=== PATIENT | male | born 1950 | race Caucasian/White ===

== ENCOUNTER 2017-10-27 09:11 | Inpatient (IN) | payer OTHER ==
[2017-09-29 12:43] VITALS: BMI 34.0
[2017-09-29 12:54] LABS: BASO % 0.6 %; BASO ABS # 0.04 K/uL (0-0.2); EOS % 2.4 %; EOS ABS # 0.16 K/uL (0-0.5); HEMATOCRIT 44.2 % (42-52); HEMOGLOBIN 14.9 g/dL (14.0-18.0); IG# 0.01 K/uL (0.00-0.02); LYMPH % 35.7 %; LYMPH ABS # 2.36 K/uL (1.2-3.4); MEAN CELL VOLUME 95.3 fL (80-100); MEAN CORPUSCULAR HEMOGLOBIN 32.1 pg (25-34); MEAN CORPUSCULAR HGB CONC 33.7 g/dl (32-36); MEAN PLATELET VOLUME 11.3 fL (7.4-10.4); MONO % 8.5 %; MONO ABS # 0.56 K/uL (0.11-0.59); NEUT % 52.6 %; NEUT ABS # 3.48 K/uL (1.4-6.5); PLATELET COUNT 152 K/uL (130-400); RED CELL DISTRIBUTION WIDTH CV 13.2 % (11.5-14.5); WHITE BLOOD COUNT 6.61 K/uL (4.8-10.8)
--- NOTE | 2017-09-29 13:13 | PAT Medication Instructions ---
Service Date Sep 29, 2017. Current Home Medication List Acetaminophen (Tylenol Arthritis Ext Rel), 1,300 MG PO BID PRN for PRN Aspirin (Aspirin Ec), 81 MG PO QAM Atorvastatin (Lipitor), 20 MG PO QPM Clopidogrel (Plavix), 75 MG PO QAM Losartan Potassium (Cozaar), 50 MG PO QAM Metoprolol Tartrate (Lopressor) (Lopressor), 25 MG PO BID Zolpidem Tartrate (Ambien), 10 MG PO HS Medication Instructions For Your Scheduled Surgery - Hold the following medications 7 days prior to surgery per Cardiology: Clopidogrel (Plavix), 75 MG PO QAM - Hold the following medications the morning of surgery: Losartan Potassium (Cozaar), 50 MG PO QAM - Take the following medications the morning of surgery with a sip of water OTHERWISE NOTHING TO EAT OR DRINK AFTER MIDNIGHT: Aspirin (Aspirin Ec), 81 MG PO QAM Metoprolol Tartrate (Lopressor) (Lopressor), 25 MG PO BID Acetaminophen (Tylenol Arthritis Ext Rel), 1,300 MG PO BID PRN for PRN (may take if needed up to 4 hours prior to surgery) - Take the following medications as scheduled the night before surgery: Zolpidem Tartrate (Ambien), 10 MG PO HS Atorvastatin (Lipitor), 20 MG PO QPM Metoprolol Tartrate (Lopressor) (Lopressor), 25 MG PO BID If you have any questions please call us at [phone] or [phone] or [phone]
--- NOTE | 2017-09-29 13:51 | DIAGNOSTIC IMAGING REPORT ---
CHEST 2 VIEWS ROUTINE CLINICAL HISTORY: Preoperative chest COMPARISON STUDY: No previous studies for comparison. FINDINGS: The cardiac and mediastinal contours are normal. There is no evidence of focal pulmonary consolidation. There is no evidence of failure. No pleural effusions are visualized.[ IMPRESSION: No active disease in the chest. Electronically signed by: Eligio Blackman M.D. 09/29/2017 1:49 PM Dictated Date/Time: 09/29/2017 1:49 PM
[2017-09-29 15:03] LABS: CALCIUM 8.7 mg/dl (8.5-10.1); CREATININE 1.08 mg/dl (0.60-1.40); POTASSIUM 4.3 mmol/L (3.5-5.1)
[~2017-10-27] VITALS: Ht 190.5 cm; Wt 123.3 kg
[2017-10-27] VITALS (9 sets, daily range): BP systolic 111–183; BP diastolic 76–99; PULSE 73–90; TEMP 36.4–36.8; O2SAT 93–99; Ht 190.5 cm; Wt 123.3 kg
[~2017-10-27 09:11] MED LIST: ACET1TAB84 PO; ASPI81TA28 PO; ATOR-22 PO; CEFAZOLIN 3000MG IV PUSH 15 ML IV SCH; CLOP1TAB15 PO; LACTATED RINGER'S 1000ML 1,000 ML IV SCH; LOSA50TA6 PO; METO25TA56 PO; ZOLP10TA PO
[2017-10-27] MEDS ORDERED: LABETALOL HCL IV 5 MG/ML 20ML IV PRN (09:30)
[2017-10-27] MEDS ORDERED: ONDANSETRON INJ 2 MG/ML 2 ML VIAL IV PRN ×2 (09:30→13:45)
[2017-10-27] MEDS ORDERED: HYDROmorphone INJ 1 MG/ML SYR IV PRN (09:30)
[2017-10-27] MEDS ORDERED: EpHEDrine SULFATE INJ 50 MG/ML AMP IV PRN (09:30)
[2017-10-27] MEDS ORDERED: NALOXONE HCL 0.4 MG/1 ML VIAL/CARP IV PRN ×4 (09:30→13:45)
[2017-10-27] MEDS ORDERED: MEPERIDINE HCL 25 MG/ML CARP IV PRN (09:30)
[2017-10-27] MEDS ORDERED: ATROPINE SULFATE 0.1 MG/ML 5ML SYR IV PRN (09:30)
[2017-10-27] MEDS ORDERED: PHENYLEPHRINE 100MCG/ML 5ML SYR IV PRN (09:30)
[2017-10-27] MEDS ORDERED: MoRPHine SULFATE 10 MG/ML CARP/VIAL IV PRN (09:30)
[2017-10-27] MEDS ORDERED: FLUMAZENIL 0.1 MG/1 ML 10 ML VIAL IV PRN (09:30)
[2017-10-27] MEDS ORDERED: FENTANYL CITRATE INJ 50 MCG/1 ML 2 ML VIAL ONE ×4 (10:14→12:55)
[2017-10-27] MEDS ORDERED: MIDAZOLAM HCL 1 MG/ML 2ML VIAL ONE (10:14)
--- NOTE | 2017-10-27 10:26 | History & Physical Bridge Note ---
H&P Re-Evaluation Bridge Note: I have examined the patient, reviewed the History & Physical and in the interval since the performance of the History & Physical I have noted the following changes of clinical significance: No changes noted
--- NOTE | 2017-10-27 10:28 | History and Physical ---
History & Physical Date Oct 27, 2017. Chief Complaint Back and leg pain History of Present Illness The patient is a 67 year old male with complaints of back and leg pain Additional History Hepatic Disease: No Endocrine Disorder: No Kidney Disease: No Hypertension: Yes Heart Disease: No Bleeding Tendencies: No Infectious Diseases: No Allergies Coded Allergies: Penicillins (Verified Allergy, Unknown, RASH A CHILD, 09/29/17) Home Medications Scheduled Aspirin (Aspirin Ec), 81 MG PO QAM Atorvastatin (Lipitor), 20 MG PO QPM Clopidogrel (Plavix), 75 MG PO QAM Losartan Potassium (Cozaar), 50 MG PO QAM Metoprolol Tartrate (Lopressor) (Lopressor), 25 MG PO BID Zolpidem Tartrate (Ambien), 10 MG PO HS Scheduled PRN Acetaminophen (Tylenol Arthritis Ext Rel), 1,300 MG PO BID PRN for PRN Physical Examination Skin: warm/dry, no rash Eyes: normal inspection, EOMI, sclerae normal ENT: normal ENT inspection, pharynx normal Head: normocephalic, atraumatic Neck: supple, no adenopathy, trachea midline Respiratory/Chest: lungs clear, normal breath sounds, no respiratory distress Cardiovascular: regular rate, rhythm, no edema, no murmur Abdomen / GI: normal bowel sounds, non tender Back: normal inspection Extremities: normal inspection, normal range of motion Neurologic/Psych: no motor/sensory deficits, alert, normal reflexes, oriented x 3 Diagnosis Lumbar spinal stenosis Plan of Treatment L4 to S1 decompression and fusion
[2017-10-27] MEDS ORDERED: BACITRACIN 50000 UNIT VIAL ONE (11:00)
[2017-10-27] MEDS ORDERED: BUPIVACAINE 0.5 % 5 MG/1 ML MPF 30ML VIAL ONE (11:01)
[2017-10-27] MEDS ORDERED: HYDROmorphone INJ 2 MG/ML SYR/VIAL ONE ×2 (11:01→12:10)
[2017-10-27] MEDS ORDERED: EpINEphrine INJ 1MG/ML AMP 1 MG/ML AMP ONE (11:01)
[2017-10-27] MEDS ORDERED: NURSING VERBAL MED ORDER ONE ×2 (11:15)
--- NOTE | 2017-10-27 12:06 | Anesthesiology Progress Note ---
Anesthesia Post Op Note Date & Time Oct 27, 2017 at 12:06 Vital Signs Pain Intensity: 3 Vital Signs Past 12 Hours Date Time Temp Pulse Resp B/P (MAP) Pulse Ox O2 Delivery O2 Flow Rate FiO2 10/27/17 09:44 36.7 73 18 183/99 96 Room Air Notes Mental Status: alert / awake / arousable, participated in evaluation Pt Amnestic to Procedure: Yes Nausea / Vomiting: adequately controlled Pain: adequately controlled, improving with treatment Airway Patency, RR, SpO2: stable & adequate BP & HR: stable & adequate Hydration State: stable & adequate Anesthetic Complications: no major complications apparent
[2017-10-27] MEDS ORDERED: ALBUMIN HUMAN 5% 12.5 GM/250 ML VIAL IV ONE (12:10)
[2017-10-27] MEDS ORDERED: FLOSEAL HEMOSTATIC MATRIX 10ML TOP ONE (13:31)
[2017-10-27] MEDS ORDERED: PROPOFOL IV EMULSION 10 MG/ML 20 ML VIAL IV ONE (13:34)
[2017-10-27] MEDS ORDERED: LIDOCAINE HCL 2% 2 ML VIAL (20MG/ML) ONE (13:34)
[2017-10-27] MEDS ORDERED: EpHEDrine SULFATE 50MG/5ML SYR ONE ×2 (13:34→13:42)
[2017-10-27] MEDS ORDERED: DEXAMETHASONE SOD INJ 4 MG/ML VIAL ONE (13:34)
[2017-10-27] MEDS ORDERED: ONDANSETRON INJ 2 MG/ML 2 ML VIAL ONE ×2 (13:34→13:42)
[2017-10-27] MEDS ORDERED: ROCURONIUM BROMIDE 10 MG/ML 5 ML VIAL IV ONE (13:34)
[2017-10-27] MEDS ORDERED: SODIUM CHLORIDE 0.9% 1000ML 1,000 ML IV SCH ×2 (13:37)
[2017-10-27] MEDS ORDERED: NEOSTIGMINE METHYLSULFATE 1 MG/ML 10ML VIAL ONE (13:42)
[2017-10-27] MEDS ORDERED: GLYCOPYRROLATE INJ 0.2 MG/ML VIAL ONE (13:42)
[2017-10-27] MEDS ORDERED: KETOROLAC TROMETHAMINE 30 MG/ML VIAL ONE (13:42)
[2017-10-27] MEDS ORDERED: LORAZEPAM 0.5 MG TAB PO PRN (13:45)
[2017-10-27] MEDS ORDERED: SOD PHOSPHATE/SOD BIPHOSPHATE ENEMA 132 ML BTL PR PRN (13:45)
[2017-10-27] MEDS ORDERED: ACETAMINOPHEN IV 100 ML IV PRN (13:45)
[2017-10-27] MEDS ORDERED: MAGNESIUM HYDROXIDE SUSP 30 ML UDC PO PRN (13:45)
[2017-10-27] MEDS ORDERED: FAMOTIDINE 20 MG TAB PO PRN (13:45)
[2017-10-27] MEDS ORDERED: DO NOT ADMINISTER PNEUMOCOCCAL VACCINE PRN (13:45)
[2017-10-27] MEDS ORDERED: PROMETHAZINE HCL INJ 12.5 MG in SODIUM CHLORIDE 0.9% 50ML 50 ML IV PRN (13:45)
[2017-10-27] MEDS ORDERED: ALUMINUM/MAGNESIUM SUSP 30 ML UDC PO PRN (13:45)
[2017-10-27] MEDS ORDERED: BISACODYL 10 MG SUPP PR PRN (13:45)
[2017-10-27] MEDS ORDERED: METOCLOPRAMIDE HCL INJ 5 MG/ML 2 ML VIAL IV PRN (13:45)
[2017-10-27] MEDS ORDERED: hydrOXYzine HCL 25 MG TAB PO PRN (13:45)
[2017-10-27] MEDS ORDERED: ACETAMINOPHEN 500 MG TAB PO PRN (13:45)
[2017-10-27] MEDS ORDERED: DO NOT ADMINISTER FLU VACCINE PRN (13:45)
[2017-10-27] MEDS ORDERED: LORAZEPAM INJ 0.5 MG in SYRINGE 0.75 ML IV PRN (13:45)
--- NOTE | 2017-10-27 13:45 | DIAGNOSTIC IMAGING REPORT ---
INTRAOPERATIVE RADIOGRAPHS CLINICAL HISTORY: L4-S1 spinal fusion. Fluoroscopy time: 21 seconds. FINDINGS: 2 spot fluoroscopic views of the lumbar spine are presented. There has been discectomy at L4-L5 and L5-S1 with laminectomy and posterior fusion from L4 -S1. Interpedicular screws are present at all levels. The orthopedic hardware appears intact. IMPRESSION: Intraoperative images from L4 -S1 spinal fusion as above. Electronically signed by: Delmer Shen M.D. 10/27/2017 1:44 PM Dictated Date/Time: 10/27/2017 1:43 PM
--- NOTE | 2017-10-27 13:47 | [facility] Operative Report ---
Operative Report Operative Date Oct 27, 2017. Pre-Operative Diagnosis Lumbar Spinal Stenosis Post-Operative Diagnosis Lumbar Spinal Stenosis Procedure(s) Performed #1 decompression medial facetectomy foraminotomies L3 4 L4 5 L5-S1. #2 posterior spinal fusion L4 5 L5-S1. #3 placement of posterior segmental instrumentation L4 5 L5-S1. #4 interbody fusion L4 5 L5-S1. #5 placement peek cage 15 x 26 mm L4 5 and 13 x 26 mm at L5-S1. #6 placement of locally harvested morcellized autograft in the posterior lateral gutters. #7 placement infuse collagen sponge commode Master graft in the posterior lateral gutters and ostial amp in the interbody space. Surgeon Waterfront Director Surgeon(s) Sona Magaña PA-C Estimated Blood Loss 625ml Findings Severe spinal stenosis with spondylolisthesis Specimens None per surgeon Description of Procedure Patient was met with preoperatively case discussed all questions addressed. After informed consent obtained patient was taken to the operative suite underwent intubation placed in a prone position the Juan David table on top of the Hayes frame. All bony prominences well-padded eyes inspected to ensure no external pressure placed upon them. This point the lumbar spine was prepped and draped in normal sterile fashion. Sharp dissection with the assistance of Bovie cautery was performed onto an exposing the lamina and transverse processes of L4-L5 and sacral alar bilaterally. From a caudal to cephalad fashion a complete laminectomy of L5 L4 and partial laminectomy of L3 was performed addressing severe lateral recess and foraminal disease. Pedicle screws are then placed in L4-L5 and S1 levels bilaterally with assistance of fluoroscopy and the probably size asya placed. Through a transforaminal approach on the right a complete discectomy of L5 S1 was performed and plate created to subcortical bleeding bone and a 13 x 26 mm peek cage filled with ostial amp tapped in position. Then proceeded L4 5 and again through a transforaminal approach on the right complete discectomy performed and plate created to subcortical bleeding bone and a 15 x 26 mm peek cage filled with ostial amp tapped in position. The rods were then locked and final position bilaterally. The transverse processes of L4-L5 and sacral alar burred to subcortical bleeding bone. Infuse collagen sponge mask graft locally harvested morcellized autograft was placed in the posterior lateral gutters. 15 round JEFF drain inserted. Incision was then closed with 1 Vicryl in the fascia 2-0 Vicryl subcutaneous tediously 4 Monocryl for final skin closure Steri-Strips sterile dressings placed. Patient we can taken to PACU stable condition. Please note Sona Sutton was present at the entire procedure involved in patient positioning complex portions of the surgery and final skin closure. I attest to the content of the Intraoperative Record and any orders documented therein. Any exceptions are noted below.
[2017-10-27] MEDS ORDERED: HYDROmorphone HCL 0.5MG/ML 50 ML CASSETTE ONE (14:16)
--- NOTE | 2017-10-27 14:38 | Anesthesiology Progress Note ---
Anesthesia Post Op Note Date & Time Oct 27, 2017 at 14:38 Vital Signs Pain Intensity: 3 Vital Signs Past 12 Hours Date Time Temp Pulse Resp B/P (MAP) Pulse Ox O2 Delivery O2 Flow Rate FiO2 10/27/17 14:30 84 13 155/94 100 Nasal Cannula 4 Oxymask 10/27/17 14:20 85 13 164/99 99 Oxymask 10 10/27/17 14:10 67 11 154/75 95 Oxymask 10 10/27/17 14:01 36.1 71 14 162/98 96 Oxymask 10 10/27/17 09:44 36.7 73 18 183/99 96 Room Air Notes Mental Status: alert / awake / arousable, participated in evaluation Pt Amnestic to Procedure: Yes Nausea / Vomiting: adequately controlled Pain: adequately controlled Airway Patency, RR, SpO2: stable & adequate BP & HR: stable & adequate Hydration State: stable & adequate Anesthetic Complications: no major complications apparent
[2017-10-27] MEDS: HYDROmorphone HCL 0.5MG/ML 50 ML CASSETTE IV PRN ×2 (15:32→23:06)
[2017-10-27] MEDS: SODIUM CHLORIDE 0.9% 1000ML 1,000 ML IV SCH ×2 (16:49→22:40)
[2017-10-27] MEDS ORDERED: CEFAZOLIN IV 3,000 MG in DEXTROSE 5% 50ML 50 ML IV SCH (20:00)
[2017-10-27] MEDS: ZOLPIDEM TARTRATE 10 MG TAB PO SCH (21:00)
[2017-10-27] MEDS: CEFAZOLIN IV 3,000 MG in SYRINGE 0 ML IV SCH (21:03)
[2017-10-27] MEDS: DOCUSATE SODIUM/SENNA 50/8.6MG TAB PO SCH (21:04)
[2017-10-27] MEDS: ATORVASTATIN 20 MG TAB PO SCH (21:04)
[2017-10-27] MEDS: METOPROLOL TARTRATE 25 MG TAB PO SCH (21:07)
[2017-10-27] MEDS ORDERED: NURSING DECISION MEDICATION ORDER SCH (21:45)
[2017-10-27] MEDS ORDERED: COUGH DROP (SUGAR FREE) LOZ 24 LOZ/1 BOX PO PRN (21:45)
[2017-10-28] VITALS (7 sets, daily range): BP systolic 113–130; BP diastolic 70–78; PULSE 59–79; TEMP 36.5–37.1; O2SAT 93–95
[2017-10-28] MEDS: CEFAZOLIN IV 3,000 MG in SYRINGE 0 ML IV SCH (03:59)
[2017-10-28] MEDS ORDERED: NURSING DECISION MEDICATION ORDER SCH (05:30)
[2017-10-28 05:43] LABS: BASO % 0.1 %; BASO ABS # 0.01 K/uL (0-0.2); HEMATOCRIT 34.7 % (42-52); HEMOGLOBIN 11.7 g/dL (14.0-18.0); IG# 0.04 K/uL (0.00-0.02); LYMPH % 7.9 %; LYMPH ABS # 0.94 K/uL (1.2-3.4); MEAN CELL VOLUME 95.3 fL (80-100); MEAN CORPUSCULAR HEMOGLOBIN 32.1 pg (25-34); MEAN CORPUSCULAR HGB CONC 33.7 g/dl (32-36); MEAN PLATELET VOLUME 10.5 fL (7.4-10.4); MONO % 7.3 %; MONO ABS # 0.87 K/uL (0.11-0.59); NEUT % 84.4 %; NEUT ABS # 10.11 K/uL (1.4-6.5); PLATELET COUNT 121 K/uL (130-400); RED CELL DISTRIBUTION WIDTH SD 45.5 fL (36.4-46.3); WHITE BLOOD COUNT 11.97 K/uL (4.8-10.8)
[2017-10-28] MEDS ORDERED: HYDROmorphone INJ 0.5 MG/0.5 ML SYR IV PRN (06:00)
[2017-10-28] MEDS ORDERED: DC PCA SCH (06:00)
[2017-10-28 06:17] LABS: CALCIUM 7.7 mg/dl (8.5-10.1); CREATININE 1.09 mg/dl (0.60-1.40); POTASSIUM 4.2 mmol/L (3.5-5.1)
--- NOTE | 2017-10-28 08:24 | Clinical Documentation Query ---
CLINICAL DOCUMENTATION QUERY H&P only lists hypertension as a past medical history, but patient med reconciliation tells a different story. In your clinical opinion is this patient being managed for: ( ) Hyperlipidemia ( ) CAD ( ) Not Agree ( ) Other explanation of clinical findings (Please Explain) ( ) Unable to determine (Please Define) ( ) Need to Discuss The medical record reflects the following clinical findings, treatment, and risk factors. Clinical Indicators: Takes asa, Plavix, Cozaar, Lopressor, & Lipitor at home. Treatment: Remains on above in hospital Risk Factors: Age, Please clarify and document your clinical opinion in the progress notes and discharge summary. Terms such as "probable", "suspected", "likely", "questionable", "possible", or "still to be ruled out" are acceptable. IF IN AGREEMENT, YOU MUST DOCUMENT ABOVE DIAGNOSTIC STATEMENT IN DAILY PROGRESS NOTES AND DISCHARGE SUMMARY. This document is not part of the patient's record. Thank You, Ilir Pantoja, RN [phone]
--- NOTE | 2017-10-28 08:31 | Progress Note ---
Progress Note Date of Service Oct 28, 2017. Progress Note Back pain controlled leg pain markedly improved. Vital signs stable. On exam he is interior bedside as good strength testing. Assessment status post lumbar decompression fusion replant this time we'll initiate physical therapy advance his bowel regiment anticipate home the next few days.
[2017-10-28] MEDS: LOSARTAN POTASSIUM 50 MG TAB PO SCH (08:49)
[2017-10-28] MEDS: METOPROLOL TARTRATE 25 MG TAB PO SCH ×2 (08:49→21:08)
[2017-10-28] MEDS: ASPIRIN 81 MG ECTAB PO SCH (08:49)
--- NOTE | 2017-10-28 08:49 | Anesthesiology Progress Note ---
Anesthesia Post Op Note Date & Time Oct 28, 2017 at 08:48 Vital Signs Pain Intensity: 2.0 Vital Signs Past 12 Hours Date Time Temp Pulse Resp B/P (MAP) Pulse Ox O2 Delivery O2 Flow Rate FiO2 10/28/17 07:50 Room Air 10/28/17 07:00 36.5 61 16 113/71 (85) 94 Room Air 10/28/17 04:00 36.8 79 18 130/78 (95) 94 Room Air 10/27/17 23:55 36.5 80 18 141/76 (97) 93 Room Air 10/27/17 23:45 Room Air 10/27/17 21:06 79 159/90 (113) Notes Mental Status: alert / awake / arousable, participated in evaluation Pt Amnestic to Procedure: Yes Nausea / Vomiting: adequately controlled Pain: adequately controlled Airway Patency, RR, SpO2: stable & adequate BP & HR: stable & adequate Hydration State: stable & adequate Anesthetic Complications: no major complications apparent pt reports some nausea post op with no vomiting. resolved with meds.
[2017-10-28] MEDS: OXYCODONE HCL IR 5 MG TAB (IMMEDIATE RELEASE) PO PRN ×3 (08:52→20:11)
[2017-10-28] MEDS: KETOROLAC TROMETHAMINE 15 MG/ML VIAL IV. PRN (15:28)
[2017-10-28] MEDS: ZOLPIDEM TARTRATE 10 MG TAB PO SCH (21:07)
[2017-10-28] MEDS: ATORVASTATIN 20 MG TAB PO SCH (21:08)
[2017-10-28] MEDS: DOCUSATE SODIUM/SENNA 50/8.6MG TAB PO SCH (21:09)
[2017-10-29] VITALS (7 sets, daily range): BP systolic 114–138; BP diastolic 70–84; PULSE 61–70; TEMP 36.4–37.6; O2SAT 94–97
[2017-10-29] MEDS: POLYETHYLENE (MIRALAX) 17 GM PACK PO SCH ×4 (06:27→23:27)
[2017-10-29] MEDS: OXYCODONE HCL IR 5 MG TAB (IMMEDIATE RELEASE) PO PRN ×3 (06:31→20:56)
[2017-10-29] MEDS: ASPIRIN 81 MG ECTAB PO SCH (07:21)
[2017-10-29] MEDS: LOSARTAN POTASSIUM 50 MG TAB PO SCH (07:22)
[2017-10-29] MEDS ORDERED: RXC5 PO (07:36)
--- NOTE | 2017-10-29 07:37 | Discharge Instructions ---
Discharge Instructions Date of Service Oct 29, 2017. Admission Reason for Admission: Lumbar Spinal Stenosis Discharge Discharge Diagnosis / Problem: lumbar stenosis Discharge Goals Goal(s): Improve function Activity Recommendations Activity Limitations: per Instructions/Follow-up section . Instructions / Follow-Up Instructions / Follow-Up ACTIVITY RECOMMENDATIONS: SELF CARE INSTRUCTIONS AFTER THORACIC/LUMBAR FUSIONS 1. You may walk to your tolerance. It is good exercise for your legs and back. Expect some back and intermittent leg aches and pains. 2. You may perform "counter-top" level activities (make a sandwich, della with a project, etc.). 3. No bending or lifting of more than 10 pounds or back twisting of any nature (roll like a log when turning in bed). 4. You may ride in a car for 20-30 minutes at a time. No driving until after your first visit with your doctor. 5. Frequent changes of position and restricting sitting to 30 minutes at a time will help limit the amount of back spasms and stiffness you may experience. 6. You may discontinue the use of ambulatory aids (cane, crutches, etc.) once your strength and confidence allow. 7. You may [place] machine operator the shower and let water strike your incision when you arrive home at least once daily. Do not take a tub bath, sit in a hot tub or go into a swimming pool until after your first recheck in the office. SPECIAL CARE INSTRUCTIONS: VERY IMPORTANT TO READ AND REVIEW A. Your surgical incision has been closed with a cosmetic suture under the skin that will dissolve in about 6 weeks. In 14 days, you can use a pair of clean scissors and cut the suture that is left outside of the skin at the ends of your incision. 1. The small skin tapes can be removed 7 days after surgery if they have not fallen off by that point. 2. You may keep the wound open to air as much as possible to promote healing after post-op day number 5 unless told otherwise by your doctor. 3. If you think the wound looks like it is becoming infected (redness or worsening drainage) and/or you are experiencing fever, chill or worsening back pain and muscle spasms, contact the office so that we may evaluate you as soon as possible. B. Complications are uncommon, but please contact us if you have any signs or symptoms of: 1. wound infection (fever higher than 102.5 degrees F, redness, separation of wound, drainage, or increasing pain from the incision) 2. blood clots in legs (pain, swelling, redness and warmth in legs) 3. urinary tract infection (fever higher than 102.5 degrees F, burning upon urination or increased frequency of urination) 4. nerve problems (inability to walk on your toes or heels, numbness, loss of bowel or bladder control) 5. any other symptoms that concern you C. Please call the office at if you have any concerns or questions about your operation or recovery. D. No smoking! Smoking drastically decreases the chance of a solid fusion. E. Do not take any anti-inflammatory medications (Indocin, Advil, Motrin, Aspirin, Naprosyn, etc.) as these may inhibit the chance of a solid fusion. Tylenol is okay to take for pain. MANAGING PAIN AFTER SPINAL SURGERY 1. Narcotic medication is intended for short-term use and will be provided for surgical pain. Surgical pain usually lasts for a period of 4-6 weeks. Narcotic medication includes Percocet, Vicodin, Darvocet, Tylenol #3 or Lortab. 2. Longer-term pain is more appropriately treated with non-narcotic medication such as Tylenol ES. 3. Muscle spasm is not appropriately treated with narcotics. Muscle relaxers such as Soma, Flexeril or Skelaxin can be used along with Tylenol ES. 4. Remember that we all live with some "aches and pains". This is not unusual or uncommon after an injury or as we get older. a. Back pain is expected and may include muscle spasms for 4 to 6 weeks after surgery. The pain should gradually improve. If the pain worsens for no apparent reason, please contact the office. b. Intermittent leg pain may also be experienced and should not be concerned about unless it worsens for no apparent reason. If so, please contact the office. 5. We will provide appropriate medication within the normal guidelines of their prescribed use. We will also be very cautious and aware of potential abuse and extended duration of patients' medication needs. a. Pain medications are for your comfort and to assist with sleep and rest so that the tissue can heal. They are not provided in order to return to normal activity and should not be used through the day. To do so or worsening pain at night can result from ongoing tissue damage and development of tolerance to the prescribed medicine. 6. Please allow 2-3 days to process refills. Prescriptions will not be mailed but must be picked up at the office. FOLLOW UP VISIT: Keep your scheduled follow-up appointment. Any questions, please call the office at . Current Hospital Diet Patient's current hospital diet: Regular Diet Discharge Diet Recommended Diet: Regular Diet Procedures Procedures Performed: #1 decompression medial facetectomy foraminotomies L3 4 L4 5 L5-S1. #2 posterior spinal fusion L4 5 L5-S1. #3 placement of posterior segmental instrumentation L4 5 L5-S1. #4 interbody fusion L4 5 L5-S1. #5 placement peek cage 15 x 26 mm L4 5 and 13 x 26 mm at L5-S1. #6 placement of locally harvested morcellized autograft in the posterior lateral gutters. #7 placement infuse collagen sponge commode Master graft in the posterior lateral gutters and ostial amp in the interbody space. Pending Studies Studies pending at discharge: no Medical Emergencies . Who to Call and When: Medical Emergencies: If at any time you feel your situation is an emergency, please call 911 immediately. . Non-Emergent Contact Non-Emergency issues call your: Primary Care Provider . "Provider Documentation" section prepared by Samson Herrera. . VTE Core Measure Inpt VTE Proph given/why not?: Nati Giang, SCD's
[2017-10-29] MEDS: METOPROLOL TARTRATE 25 MG TAB PO SCH ×2 (07:47→20:55)
--- NOTE | 2017-10-29 12:30 | Progress Note ---
Progress Note Date of Service Oct 29, 2017. Progress Note Patient's back pain is controlled. Leg pain markedly improved. Vital signs are stable. On exam he is standing in bleeding about the room with a narrow steady gait. His good strength testing. Assessment status post lumbar decompression fusion. Planned this time will maintain the JEFF drain another 24 hours and anticipate discharge home tomorrow.
[2017-10-29] MEDS: KETOROLAC TROMETHAMINE 15 MG/ML VIAL IV. PRN (15:05)
[2017-10-29] MEDS: ZOLPIDEM TARTRATE 10 MG TAB PO SCH (20:55)
[2017-10-29] MEDS: ATORVASTATIN 20 MG TAB PO SCH (20:55)
[2017-10-29] MEDS: DOCUSATE SODIUM/SENNA 50/8.6MG TAB PO SCH (20:55)
[2017-10-30] MEDS: POLYETHYLENE (MIRALAX) 17 GM PACK PO SCH ×2 (05:48→12:00)
[2017-10-30] MEDS: OXYCODONE HCL IR 5 MG TAB (IMMEDIATE RELEASE) PO PRN ×2 (05:51→11:59)
[2017-10-30 07:20] VITALS: BP 144/87; PULSE 58; TEMP 36.5; O2SAT 95
[2017-10-30] MEDS: LOSARTAN POTASSIUM 50 MG TAB PO SCH (08:48)
[2017-10-30] MEDS: ASPIRIN 81 MG ECTAB PO SCH (08:48)
[2017-10-30] MEDS: METOPROLOL TARTRATE 25 MG TAB PO SCH (08:48)
[2017-10-30 08:50] VITALS: BP 137/77; PULSE 74
[2017-10-30 11:47] VITALS: BP 137/77; PULSE 74; TEMP 36.5; O2SAT 95
--- NOTE | 2017-10-30 13:52 | DISCHARGE SUMMARY ---
ADMITTING DIAGNOSIS: Spinal stenosis. DISCHARGE DIAGNOSIS: Same. OPERATION AND DATE: lumbar decompression and instrumented fusion performed on 10/27/2017. HOSPITAL COURSE AND TREATMENT: Mr. Alcala is a pleasant 67-year-old male with history and physical examination, radiographic images consistent with the above-mentioned diagnosis. For this reason, he was brought to the operating room and underwent the above-mentioned procedures performed by Dr. Herrera under general anesthesia. He left the operating room with JEFF drain and [place] in place and was transferred to PACU in stable condition. He was given a ATTORNEY GENERAL for pain control. He was then transferred to the orthopedic floor. He was seen by physical therapy postoperative day #1 for ambulation and gait training. Throughout his hospital course, his dressings remained clean, dry and intact. Calves remained supple and nontender and is safe for home discharge at this point. DISCHARGE INSTRUCTIONS: Resume his preoperative medications. He may restart his Plavix in 72 hours from surgery. He is to utilize oxycodone for pain control. We reviewed physical limitations including bending, lifting and twisting. We will see him in the office in 2 weeks or sooner if he develops any fevers, chills or increased drainage from his incision.
== END 2017-10-30 12:40 | disposition home or self-care (01) | DRG 455 ==
LOC: C.ACU 09:11 → C.3E 10:20 → ENRESERV 14:24
PROVIDERS: ADMIT Orthopaedic Surgery Orthopaedic Surgery of the Spine; ATTEND Orthopaedic Surgery Orthopaedic Surgery of the Spine
PROC: 0SG10AJ Fusion of 2 or more Lumbar Vertebral Joints with Interbody Fusion Device, Posterior Approach, Anterior Column, Open Approach (ICD-10-PCS; principal; 2017-10-27 11:15)
PROC: 0ST20ZZ Resection of Lumbar Vertebral Disc, Open Approach (ICD-10-PCS; principal; 2017-10-27 11:15)
PROC: 0SG10J1 Fusion of 2 or more Lumbar Vertebral Joints with Synthetic Substitute, Posterior Approach, Posterior Column, Open Approach (ICD-10-PCS; principal; 2017-10-27 11:15)
DX: M48.061 Spinal stenosis, lumbar region without neurogenic claudication (principal); Z88.0 Allergy status to penicillin; Z79.82 Long term (current) use of aspirin